=== PATIENT | female | born 1975 | race Caucasian/White ===

== ENCOUNTER 2016-06-28 12:14 | Emergency (ER) | payer MEDICAID ==
[~2016-06-28] VITALS: Ht 154.9 cm; Wt 58.5 kg
[~2016-06-28 12:14] MED LIST: CIPR-217 PO; LIS5T PO; METO25TA62 PO
[2016-06-28 14:07] VITALS: BP 141/83
== END 2016-06-28 15:29 | disposition home or self-care (01) ==
LOC: ER 12:14
DX: O20.0 Threatened abortion (principal); Z3A.01 Less than 8 weeks gestation of pregnancy; Z88.1 Allergy status to other antibiotic agents; O46.91 Antepartum hemorrhage, unspecified, first trimester
CPT/HCPCS: 36415; 76801; 84702